=== PATIENT | female | born 1975 | race Caucasian/White ===

== ENCOUNTER 2017-06-30 15:12 | Inpatient (IN) | payer BC ==
[2017-06-30 15:14] VITALS: BMI 26.7
--- NOTE | 2017-06-30 16:05 | ED PDOC ---
HPI: Neurologic - General Time Seen by Provider: 06/30/17 15:38 Chief Complaint (Nursing): Lower Extremity Problem/Injury Chief Complaint (Provider): Lower Extremity Problem/injury Source: patient Exam Limitations: no limitations - History of Present Illness Timing/Duration: other (x4 days) Allergies/Adverse Reactions: Allergies No Known Allergies Allergy (Verified 06/30/17 15:14) Home Medications: Ambulatory Orders Meclizine [Meclizine*] 25 mg PO DAILY PRN 06/30/17 Additional Complaint(s): Vania Blair is a 41 year old female sent to the ED by her neurologist for an evaluation of a neurological problem beginning Tuesday. The patient states Tuesday night she placed a massage apparatus on her lower neck, falling asleep without removing the apparatus. She reports waking up Tuesday and favoring walking towards her right side. The patient also states experiencing double vision lasting for 10 minutes and then resolving on its own every morning since then. The patient then proceeded to see her PMD and was prescribed Meclizine, taken without relief. Subsequently, the patient saw her neurologist who sent her to the ED today. The patient denies headache, paresthesia, visual changes, blurry vision, weakness, or any other medical complaints. PMD: Harrison Garcia MD NIHSS Stroke Scale - Date/Time Evaluation Performed Date Performed: 06/30/17 Time Performed: 15:55 When Was NIHSS Performed: 24 hours post onset S/S - How Severe is the Stroke Level of Consciousness: 0=Alert LOC to Questions: 0=Both comments correct LOC to commands: 0=Obeys both correctly Best Gaze: 0=Normal Visual: 0=No visual loss Facial: 0=Normal Motor Arm - Left: 0=No drift Motor Arm - Right: 0=No drift Motor Leg - Left: 0=No drift Motor Leg - Right: 0=No drift Limb Ataxia: 1=Present Upper or Lower Sensory: 0=Normal Best Language: 0=No aphasia Dysarthia: 0=Normal articulation Extinction & Inattention (Neglect): 0=Normal, no object Score: 1 Past Medical History Reviewed: Historical Data, Nursing Documentation, Vital Signs Vital Signs: Last Vital Signs Temp 98.8 F 06/30/17 15:15 Pulse 101 H 06/30/17 15:15 Resp 16 06/30/17 15:15 BP 128/71 06/30/17 15:15 Pulse Ox 100 06/30/17 15:15 - Medical History PMH: No Chronic Diseases - Family History Family History: States: Unknown Family Hx - Home Medications Home Medications: Ambulatory Orders Medication Instructions Recorded Meclizine [Meclizine*] 25 mg PO DAILY PRN 06/30/17 - Allergies Allergies/Adverse Reactions: Allergies Allergy/AdvReac Type Severity Reaction Status Date / Time No Known Allergies Allergy Verified 06/30/17 15:14 Review of Systems ROS Statement: Except As Marked, All Systems Reviewed And Found Negative Eyes: Negative for: Vision Change, Other (no blurry vision) Neurological: Negative for: Weakness, Headache, Other (no paresthesia ) Physical Exam - Reviewed Nursing Documentation Reviewed: Yes Vital Signs Reviewed: Yes - Physical Exam Appears: Positive for: Well, Non-toxic, No Acute Distress Head Exam: Positive for: ATRAUMATIC, NORMAL INSPECTION, NORMOCEPHALIC Skin: Positive for: Normal Color, Warm, DRY Eye Exam: Positive for: EOMI, Normal appearance, PERRL ENT: Positive for: Normal ENT Inspection Neck: Positive for: Normal, Painless ROM Cardiovascular/Chest: Positive for: Regular Rate, Rhythm Respiratory: Positive for: CNT, Normal Breath Sounds Gastrointestinal/Abdominal: Positive for: Normal Exam, Bowel Sounds, Soft Back: Positive for: Normal Inspection Extremity: Positive for: Normal ROM Neurologic/Psych: Positive for: Alert, Oriented, Motor/Sensory Deficits (right finger to nose was abnormal), Gait (heel to mcallister was within normal limits ). Negative for: Facial Droop, Other (no slurred speech ) - Laboratory Results Result Diagrams: 07/01/17 05:40 07/01/17 05:40 - ECG O2 Sat by Pulse Oximetry: 100 (RA) Pulse Ox Interpretation: Normal - Physician Consult Information Physician Contacted: Carlin Thacker Outcome Of Conversation: Recommends CTA head and neck, r/o cerebellar infarction or vertebral artery dissection, ASA 81 mg PO. Medical Decision Making Medical Decision Makin:38 Impression: Neurological problem Plan: * Type and Screen * CT head W/O (Code Stroke) * ED EKG * COMP Metabolic panel * Hemoglobin A1C * Lipid panel * Troponin I * CBC (With Differential) * Partial Thromboplastin Time [COAG] * Prothrombin Time * Glucose, Blood POC * Nursing Swallow Screen * Vital Signs Q15min * [RAD] Chest portable * Urinalysis * Reevaluation 19:20 CTA results discussed with Dr. Thacker, recommends MRI brain and neck with and without contrast. MRI ordered but unable to get today since patient was administered contrast for CTA. Scribe Attestation: Documented by Asiya Mejia, acting as a scribe for Jazmin Alcaraz MD. Provider Scribe Attestation: All medical record entries made by the Scribe were at my direction and personally dictated by me. I have reviewed the chart and agree that the record accurately reflects my personal performance of the history, physical exam, medical decision making, and the department course for this patient. I have also personally directed, reviewed, and agree with the discharge instructions and disposition. Disposition - Clinical Impression Clinical Impression: Dysmetria, Ataxia, Cerebral lesion - Patient ED Disposition Is Patient to be Admitted: Yes - Disposition Disposition Time: 18:57 Condition: STABLE - Pt Status Changed To: Hospital Disposition Of: Inpatient - Admit Certification Admit to Inpatient:: After my assessment, the patient will require hospitalization for at least two midnights. This is because of the severity of symptoms shown, intensity of services needed, and/or the medical risk in this patient being treated as an outpatient. - POA Present On Arrival: None
[2017-06-30 16:36] LABS: BASO % 0.5 % (0.0-2.0); EOS % 0.2 % (0.0-4.0); HEMOGLOBIN 11.2 g/dL (12.0-16.0); LYMPH # 0.7 K/uL (1.0-4.3); LYMPH % 9.6 % (20.0-40.0); MEAN CELL VOLUME 106.3 fl (81.0-99.0); MEAN CORPUSCULAR HEMOGLOBIN 36.7 pg (27.0-31.0); MEAN CORPUSCULAR HGB CONC 34.5 g/dL (33.0-37.0); MEAN PLATELET VOLUME 7.6 fl (7.2-11.7); MONO # 0.2 K/uL (0.0-0.8); MONO % 3.4 % (0.0-10.0); NEUT # 6.1 K/uL (1.8-7.0); NEUT % 86.3 % (50.0-75.0); PLATELET COUNT 260 K/uL (130-400); RBC 3.05 Mil/uL (3.80-5.20); RED CELL DISTRIBUTION WIDTH 13.1 % (11.5-14.5); WHITE BLOOD COUNT 7.1 K/uL (4.8-10.8)
--- NOTE | 2017-06-30 16:42 | CT ---
PROCEDURE: CT HEAD WITHOUT CONTRAST. HISTORY: Unsteady gait,, diplopia COMPARISON: None available. TECHNIQUE: Axial computed tomography images were obtained through the head/brain without intravenous contrast. Radiation dose: Total exam DLP = 873.22 mGy-cm. This CT exam was performed using one or more of the following dose reduction techniques: Automated exposure control, adjustment of the mA and/or kV according to patient size, and/or use of iterative reconstruction technique. FINDINGS: HEMORRHAGE: No intracranial hemorrhage. BRAIN: No mass effect or edema. No atrophy or chronic microvascular ischemic changes. VENTRICLES: Unremarkable. No hydrocephalus. CALVARIUM: Unremarkable. PARANASAL SINUSES: Unremarkable as visualized. No significant inflammatory changes. MASTOID AIR CELLS: Unremarkable as visualized. No inflammatory changes. OTHER FINDINGS: None. IMPRESSION: No acute intracranial abnormalities. No significant findings to account for the clinical presentation. Code stroke protocol: Study completed 16:23 Radiologist notified 16:37 Results conveyed verbally at 16:39 Interpretation finalized and available for review 16:41.
[2017-06-30 16:47] LABS: SQUAMOUS EPITHIAL 22 /hpf (0-5); URINE BACTERIA RARE (<OCC); URINE BILIRUBIN NEGATIVE (NEGATIVE); URINE BLOOD SMALL (NEGATIVE); URINE CLARITY CLOUDY (Clear); URINE COLOR YELLOW (YELLOW); URINE GLUCOSE (UA) NEG (Normal); URINE LEUKOCYTE ESTERASE MOD Leu/uL (Negative); URINE NITRATE NEGATIVE (NEGATIVE); URINE PROTEIN 30 mg/dL (NEGATIVE); URINE UROBILINOGEN 0.2-1.0 mg/dL (0.2-1.0)
[2017-06-30] MEDS ORDERED: Sodium Chloride 0.9% 1,000 ML IV STA (16:52)
[2017-06-30 16:58] LABS: INR 1.3 (0.9-1.2); PARTIAL THROMBOPLASTIN TIME 29.3 Seconds (25.6-37.1); PROTHROMBIN TIME 12.9 Seconds (9.8-13.1)
[2017-06-30 17:04] LABS: ALB/GLOB RATIO 1.6 (1.0-2.1); ALBUMIN 4.6 g/dL (3.5-5.0); ALT/SGPT 41 U/L (9-52); AST/SGOT 29 U/L (14-36); BLOOD UREA NITROGEN 12 mg/dl (7-17); CALCIUM 9.9 mg/dL (8.4-10.2); GFR AFRICAN-AMERICAN > 60; GFR NON-AFRICAN AMERICAN > 60; HDL CHOLESTEROL 48 MG/DL (30-70)
[2017-06-30 17:15] LABS: LDL CHOLESTEROL 59 mg/dL (0-129)
--- NOTE | 2017-06-30 17:15 | RAD ---
HISTORY: Unsteady gait COMPARISON: None available. TECHNIQUE: Chest, one view. FINDINGS: Examination limited by habitus. LUNGS: No focal consolidation. Please note that chest x-ray has limited sensitivity for the detection of pulmonary masses. PLEURA: No significant pleural effusion identified. No definite pneumothorax . CARDIOVASCULAR: The cardiomediastinal silhouette appears within normal limits of size. OSSEOUS STRUCTURES: No acute osseous abnormality identified. VISUALIZED UPPER ABDOMEN: Unremarkable. OTHER FINDINGS: None. IMPRESSION: No focal consolidation, significant pleural effusion, or definite pneumothorax identified.
[2017-06-30] MEDS ORDERED: Sodium Chloride 0.9% 50 ML IV ONE (17:23)
[2017-06-30] MEDS ORDERED: Iodixanol 320 MG/ML 100 ML BOTTLE IV ONE (17:23)
[2017-06-30 18:27] LABS: ANISOCYTOSIS SLIGHT; BASOPHIL 1 % (0-2); LYMPHOCYTE 12 % (20-50); MONOCYTE 4 % (0-10); NEUTROPHIL 83 % (42-75); OVALOCYTES SLIGHT; PLATELET ESTIMATE NORMAL (NORMAL); POIKILOCYTOSIS SLIGHT; TOTAL CELLS COUNTED 100
[2017-06-30 18:28] LABS: LARGE PLATELETS PRESENT
[2017-06-30] MEDS: Dextrose 5%/0.45% NS 1,000 ML IV SCH (23:59)
[2017-07-01 06:19] LABS: HEMOGLOBIN 9.7 g/dL (12.0-16.0); MEAN CELL VOLUME 106.1 fl (81.0-99.0); MEAN CORPUSCULAR HEMOGLOBIN 36.9 pg (27.0-31.0); MEAN CORPUSCULAR HGB CONC 34.8 g/dL (33.0-37.0); RBC 2.63 Mil/uL (3.80-5.20); RED CELL DISTRIBUTION WIDTH 13.1 % (11.5-14.5); WHITE BLOOD COUNT 4.5 K/uL (4.8-10.8)
[2017-07-01 06:28] LABS: BLOOD UREA NITROGEN 9 mg/dl (7-17); CALCIUM 9.3 mg/dL (8.4-10.2); GFR AFRICAN-AMERICAN > 60; GFR NON-AFRICAN AMERICAN > 60
--- NOTE | 2017-07-01 07:25 | CARD ---
APPROVED REPORT EKG Measurement Heart [id number] <Conclusion> Normal sinus rhythm with sinus arrhythmia Possible Left atrial enlargement Borderline ECG
--- NOTE | 2017-07-01 08:25 | CT ---
PROCEDURE: CT Angiography of the neck and Brain. HISTORY: Ataxia COMPARISON: Comparison is made to the previous same-day CT of the head without contrast TECHNIQUE: CT angiography of the neck and intracranial arteries was performed. Coronal and sagittal maximum intensity projection reformated images were generated. 80 mL of Visipaque 320 was injected intravenously. This CT exam was performed using one or more of the following dose reduction techniques: Automated exposure control, adjustment of the mA and/or kV according to patient size, and/or use of iterative reconstruction technique. Total exam D LP: 2044.8. FINDINGS: INTERNAL CEREBRAL ARTERIES: Unremarkable. The skull base, petrous, cavernous and supraclinoid segments are bilaterally widely patient. ANTERIOR CEREBRAL ARTERIES: Unremarkable. A1 and A2 segments are widely patent. Smaller distal branches unremarkable, as visualized. MIDDLE CEREBRAL ARTERIES: Unremarkable. M1 and M2 segments are widely patent. Perisylvian branches grossly symmetric. POSTERIOR CIRCULATION: Basilar Artery: Unremarkable. Distal Vertebral Arteries: Unremarkable. Posterior Cerebral Arteries: Unremarkable. Posterior Inferior Cerebellar Arteries: Unremarkable. ANEURYSM/ VASCULAR MALFORMATIONS: None. OTHER FINDINGS: Again seen are foci of low attenuation at the bifrontal lobes larger on the right and in the right parietal lobe mainly in the white matter. The possibility of MS or other etiology including sequela of infection or inflammatory process should be considered. The differential diagnosis also includes but less likely metastasis. Slightly enlarged thyroid gland contains multiple small low-attenuation nodules. Slightly prominent lower neck lymph nodes. Questionable wall small lytic bony lesion in the calvarium and cervical spine. IMPRESSION: No evidence of significant stenosis or occlusion in the cervical and intracranial arteries. Re- demonstration of foci of low attenuation in the brain mainly at the bifrontal lobes and right parietal lobe. The differential diagnosis includes but not limited to MS, sequela of infection or inflammatory process or less likely metastasis. Further assessment by MRI with contrast is recommended. Questionable small lytic bony lesions in the calvarium and cervical spine. Preliminary report was submitted by [facility].
[2017-07-01] MEDS ORDERED: Gadodiamide 287 MG/ML VIAL (15ML) IV ONE (08:53)
[2017-07-01 09:41] LABS: IRON 147 ug/dL (37-170)
[2017-07-01 09:51] LABS: % IRON SATURATION 60 % (20-55); TOTAL IRON BINDING CAPACITY 245 ug/dL (250-450)
--- NOTE | 2017-07-01 11:23 | MRI ---
PROCEDURE: MRI BRAIN WITH AND WITHOUT CONTRAST HISTORY: Cerebral/calvarial/vertebral/thyroid lesions COMPARISON: Comparison is made to the previous CT of the head without contrast dated 06/30/2017 TECHNIQUE: Multiplanar, multisequence MR images of the brain were obtained with and without intravenous contrast enhancement. FINDINGS: HEMORRHAGE: None DWI: No evidence of an acute or early subacute infarction. BRAIN PARENCHYMA: There are multiple subcortical and periventricular white matter hyperintense T2 and FLAIR signal lesions. The distribution and the shape of these lesions are highly suspicious for MS. there are also infratentorial hyperintense FLAIR signal lesions seen mainly at the right cerebral peduncle. Some of these lesions including the right cerebral peduncle and bilateral supratentorial lesions demonstrate postcontrast enhancement suggestive of active MS lesions. The sagittal FLAIR images show perpendicular orientation of these lesions on the corpus callosum (Hickey' fingers) which is somewhat specific for MS lesions. There is relatively large hyperintense lesion at the right frontal white matter. There is [id number]-[id number] atrophy noted. ENHANCEMENT: Scattered enhancing lesion as described above. VENTRICLES: Unremarkable. No hydrocephalus. CRANIUM: Unremarkable. ORBITS: Grossly unremarkable. PARANASAL SINUSES/MASTOIDS: Clear VASCULAR SYSTEM: Skull base flow voids intact. OTHER FINDINGS: None . IMPRESSION: Multiple supratentorial and infratentorial white matter lesions some of which demonstrate postcontrast enhancement. The location shape and pattern of these lesions suggestive of MS. Given the enhancing lesions the possibility of active MS should be considered. The differential diagnosis includes less likely sequela of post infection or inflammatory process. The possibility of metastasis is less likely. Correlation with CSF analysis is suggested. [id number] volume loss.
--- NOTE | 2017-07-01 11:38 | MRI ---
PROCEDURE: MR CERVICAL SPINE WITH AND WITHOUT CONTRAST HISTORY: lytic lesion, brain lesions suspicious for MS. COMPARISON: None available. TECHNIQUE: Multiecho multiplanar sequences were performed through the cervical spine with and without the use of intravenous contrast. FINDINGS: Normal lordotic curvature. Craniocervical junction unremarkable. Vertebral body heights preserved. No marrow signal abnormality. There is elongated 9.9 x 4 millimeter hyperintense T2 lesion at the cervical cord at the level of C2-C3. There are also suspicious for small cord lesions. No evidence of postcontrast enhancement at these lesions. No paraspinal abnormality. No abnormal enhancement C2-3: No disc herniation, spinal canal stenosis or neural foraminal narrowing. C3-4: No disc herniation, spinal canal stenosis or neural foraminal narrowing. C4-5: No disc herniation, spinal canal stenosis or neural foraminal narrowing. C5-C6: No disc herniation, spinal canal stenosis or neural foraminal narrowing. C6-C7: No disc herniation, spinal canal stenosis or neuroforaminal narrowing. C7-T1: No disc herniation, spinal canal stenosis or neural foraminal narrowing. OTHER FINDINGS: Mild degenerative disc changes/ disc desiccation noted at the cervical spine. IMPRESSION: Cervical cord lesion seen at C2-C3 level without significant enhancement. Given the patient's history of multiple brain lesions, findings highly suggestive of MS. Questionable small less than 5 millimeter lesions seen at C4 and C5 level. No evidence of abnormal enhancement in the cervical cord. Mild disc desiccation changes. Slightly enlarged thyroid demonstrates small thyroid nodules. Interval follow-up reassessment by ultrasound may be obtained.
[2017-07-01] MEDS ORDERED: Lidocaine 1% Inj (20ml) ONE (13:01)
[2017-07-01] MEDS ORDERED: methylPREDNISolone 1 GM in Sodium Chloride 0.9% 250 ML IV SCH (13:45)
--- NOTE | 2017-07-01 13:50 | CP.PCM.CON ---
History of Present Illness - History of Present Illness History of Present Illness: Ms. Blair is a 41-year-old woman with a history since 2008 of having symptoms of anxiety, strange weakness and sensations of the right leg that improve, who has been having double vision, gait difficulty and coordination problems ( mostly on the right side) for the past two weeks. She initially presented after she woke up one morning with the neck massager that was on all night and she thought that she may have had these symptoms as a result. A CTA of the head /neck was done and hypodense lesions were noted in the brain and cervical cord. MRI of the brain and cervical cord were then done that confirmed the presence of innumerable lesions in many different locations, brainstem, cervical cord, cerebellum, and both hemispheres, or different ages, some were contrast enhancing and others were only present on T2 sequence. I was called and performed the lumbar puncture to evaluate the CSF for features of multiple sclerosis. Review of Systems - Review of Systems All systems: reviewed and no additional remarkable complaints except Past Patient History - Past Medical History & Family History Past Medical History?: Yes - Past Social History Smoking Status: Never Smoked - CARDIAC Hx Cardiac Disorders: No - PULMONARY Hx Respiratory Disorders: Yes Hx Pneumonia: Yes (as a child) - NEUROLOGICAL Hx Neurological Disorder: No - HEENT Hx HEENT Problems: No Other/Comment: Mononucleosis - RENAL Hx Chronic Kidney Disease: No - ENDOCRINE/METABOLIC Hx Endocrine Disorders: No - HEMATOLOGICAL/ONCOLOGICAL Hx Blood Disorders: No - INTEGUMENTARY Hx Dermatological Problems: No - MUSCULOSKELETAL/RHEUMATOLOGICAL Hx Musculoskeletal Disorders: No Hx Falls: No - GASTROINTESTINAL Hx Gastrointestinal Disorders: No - GENITOURINARY/GYNECOLOGICAL Hx Genitourinary Disorders: No - PSYCHIATRIC Hx Psychophysiologic Disorder: No Hx Substance Use: No - SURGICAL HISTORY Hx Surgeries: No - ANESTHESIA Hx Anesthesia: No Meds Allergies/Adverse Reactions: Allergies Allergy/AdvReac Type Severity Reaction Status Date / Time No Known Allergies Allergy Verified 06/30/17 15:14 - Medications Medications: Current Medications Dextrose/Sodium Chloride (Dextrose 5%/0.45% Ns 1000 Ml) 1,000 mls @ 80 mls/hr IV .[id number] [place] Stop: 07/01/17 23:27 Last Admin: 06/30/17 23:59 Dose: 80 mls/hr Methylprednisolone 1 gm/ (Sodium Chloride) 250 mls @ 500 mls/hr IV DAILY [place] Stop: 07/04/17 13:46 Physical Exam - Constitutional Appears: Well - Head Exam Head Exam: ATRAUMATIC, NORMAL INSPECTION, NORMOCEPHALIC - Eye Exam Eye Exam: EOMI, Normal appearance, PERRL - ENT Exam ENT Exam: Mucous Membranes Moist, Normal Exam - Neck Exam Neck exam: Positive for: Normal Inspection - Respiratory Exam Respiratory Exam: Clear to Auscultation Bilateral, NORMAL BREATHING PATTERN - Cardiovascular Exam Cardiovascular Exam: REGULAR RHYTHM, +S1, +S2 - GI/Abdominal Exam GI & Abdominal Exam: Normal Bowel Sounds, Soft. absent: Tenderness - Rectal Exam Rectal Exam: NORMAL INSPECTION - Extremities Exam Extremities exam: Positive for: normal inspection - Back Exam Back exam: NORMAL INSPECTION - Neurological Exam Neurological exam: Abnormal Gait, CN II-XII Intact, Oriented x3 - Expanded Neurological Exam Expanded Patient oriented to: person, place, time Cranial nerves: EOM's Intact: Normal, Facial Palsey w/o Forehead Movement: Normal, Gag Reflex: Normal Ataxia: Yes (mostly on the right side on finger to nose and heal to mcallister testing ) Cerebellar Function: Finger to Nose: Abnormal Right, Heel to Mcallister: Abnormal Right Upper motor neuron: Babinski Sign: Abnormal Right Sensory exam: Lower Extremity Light Touch: Normal, Lower Extremity Pin Prick: Normal, Upper Extremity Light Touch: Normal, Upper Extremity Pin Prick: Normal Neuro motor strength exam: Left Upper Extremity: 5, Right Upper Extremity: 5, Left Lower Extremity: 5, Right Lower Extremity: 5 DTR: Achilles Tendon Left: 3+, Achilles Tendon Right: 3+, Bicep Left: 3+, Bicep Right: 3+, Brachioradialis Left: 3+, Brachioradialis Right: 3+, Patellar Left: 3 +, Patellar Right: 3+, Tricep Left: 3+, Tricep Right: 3+ - Psychiatric Exam Psychiatric exam: Normal Affect, Normal Mood - Skin Skin Exam: Dry, Intact, Normal Color, Warm Results - Vital Signs Recent Vital Signs: Last Vital Signs Temp 98.1 F 07/01/17 12:29 Pulse 85 07/01/17 12:29 Resp 18 07/01/17 12:29 BP 111/74 07/01/17 12:29 Pulse Ox 98 07/01/17 12:29 - Labs Result Diagrams: 07/01/17 05:40 07/01/17 05:40 Labs: Laboratory Results - last 24 hr 07/01/17 07/01/17 07/01/17 05:40 05:40 06:00 WBC 4.5 L RBC 2.63 L Hgb 9.7 L Hct 27.9 L MCV 106.1 H MCH 36.9 H MCHC 34.8 RDW 13.1 Plt Count 215 Sodium 140 Potassium 3.7 Chloride 107 Carbon Dioxide 25 Anion Gap 12 BUN 9 Creatinine 0.6 L Est GFR ( Amer) > 60 Est GFR (Non-Af Amer) > 60 Random Glucose 123 H Calcium 9.3 Iron 147 TIBC 245 L % Saturation 60 H Ferritin 07/01/17 06:00 WBC RBC Hgb Hct MCV MCH MCHC RDW Plt Count Sodium Potassium Chloride Carbon Dioxide Anion Gap BUN Creatinine Est GFR ( Amer) Est GFR (Non-Af Amer) Random Glucose Calcium Iron TIBC % Saturation Ferritin 185.0 Assessment & Plan (1) Multiple sclerosis Assessment and Plan: Likely an exacerbation of long-standing disease based on the MRI. Will check CSF for myelin basic protein, IgG index and oligoclonal bands. Will also check for infectious etiology and evaluate for the usual cell count and protein. Will start Solumedrol 1g daily for 3 days and recommend outpatient neurological follow-up for treatment of MS and long-term evaluation. Thank you. Status: Acute Priority: High
[2017-07-01 14:29] LABS: FLUID TYPE SPINAL FLUID
[2017-07-01 14:31] LABS: CSF APPEARANCE CLEAR/COLORLESS (CLEAR)
[2017-07-01 14:33] LABS: CSF VOLUME 2 mL (0-1)
[2017-07-01] MEDS: Dextrose 5%/0.45% NS 1,000 ML IV SCH (17:08)
[2017-07-01] MEDS: methylPREDNISolone 1 GM in Sodium Chloride 0.9% 250 ML IV SCH (19:57)
--- NOTE | 2017-07-02 00:03 | HP ---
HISTORY OF PRESENT ILLNESS: The patient is a 41-year-old female who was referred to the emergency room by her neurologist for evaluation of neurologic problems that started 4 to 5 days prior to the presentation. She indicates that she had placed a massage apparatus on her neck and fell asleep with it. On Tuesday before symptoms started, she indicates that she has had double vision for 10 to 15 minutes in the morning on waking up and also feels likes her gait has been unsteady. She denies headaches. No chest pain. No weakness of arms. PAST MEDICAL HISTORY: Unremarkable. FAMILY HISTORY: Unremarkable. SOCIAL HISTORY: She drinks a glass of wine at night with meals. Does not smoke. 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 PHYSICAL EXAMINATION: GENERAL: The patient is alert and oriented. VITAL SIGNS: Blood pressure 128/70, pulse 100, respiratory rate 18. She is afebrile. O2 sat 100% on room air. SKIN: Shows fair turgor. HEENT: Pupils equal, reactive to light and accommodation. Mouth shows fair hygiene. NECK: JVP is flat. LUNGS: Clear. BREASTS: Normal. HEART: Regular. No murmurs, rubs or gallop. ABDOMEN: Soft and nontender. No organomegaly. EXTREMITIES: Shows no edema. No cyanosis. CENTRAL NERVOUS SYSTEM: Grossly unremarkable except for unsteadiness of gait. DATA: CT scan of the head shows no acute pathology. Head and neck CTA done, official report is pending. Chest x-ray shows no acute cardiopulmonary pathology. EKG normal sinus rhythm with sinus arrhythmia, possible left atrial enlargement. LABORATORY DATA: WBC 4.5, hemoglobin 9.7, platelet count of 215,000. Sodium 140, potassium 3.7, BUN of 9, creatinine 0.6. Serum glucose 123. IMPRESSION: A young female with neurologic symptoms and visual disturbances. One has to rule out JUNIOR SYSTEMS ENGINEER pathology including symptoms like that related to multiple sclerosis. This could also be due to the patient's use of neck massager with some form of nerve entrapment. PLAN: The plan is to obtain neurology evaluation, obtain an MRI of the brain to rule out for a intracranial pathology with neurology advise prior to further plans. The patient also has anemia, which appears to be due to iron deficiency, will probably need anemia workup, that could be done as an outpatient if clinically stable. Case discussed at length with the patient. Amilcar Sandoval MD
[2017-07-02] MEDS: methylPREDNISolone 1 GM in Sodium Chloride 0.9% 250 ML IV SCH (08:52)
--- NOTE | 2017-07-02 11:44 | CP.PCM.PN ---
Subjective - Date & Time of Evaluation Date of Evaluation: 07/02/17 Time of Evaluation: 11:45 - Subjective Subjective: GAIT IMPROVING DIPLOPIA IMPROVING Objective - Vital Signs/Intake and Output Vital Signs (last 24 hours): Temp Pulse Resp BP Pulse Ox 98 F 75 20 104/99 H 100 07/02/17 09:00 07/02/17 09:00 07/02/17 09:00 07/02/17 09:00 07/02/17 10:26 Intake and Output: 07/02/17 07/02/17 06:59 18:59 Intake Total 600 Balance 600 - Medications Medications: Current Medications Methylprednisolone 1 gm/ (Sodium Chloride) 250 mls @ 62.5 mls/hr IV DAILY [place] Stop: 07/04/17 17:46 Last Admin: 07/02/17 08:52 Dose: 62.5 mls/hr - Labs Labs: 07/01/17 05:40 07/01/17 05:40 PT 12.9 Seconds (9.8-13.1) 06/30/17 16:00 INR 1.3 (0.9-1.2) H 06/30/17 16:00 APTT 29.3 Seconds (25.6-37.1) 06/30/17 16:00 - Constitutional Appears: No Acute Distress - Head Exam Head Exam: ATRAUMATIC, NORMAL INSPECTION, NORMOCEPHALIC - Eye Exam Eye Exam: EOMI, Normal appearance, PERRL Pupil Exam: NORMAL ACCOMODATION, PERRL - ENT Exam ENT Exam: Mucous Membranes Moist, Normal Exam - Neck Exam Neck Exam: Full ROM, Normal Inspection. absent: Lymphadenopathy - Respiratory Exam Respiratory Exam: Clear to Ausculation Bilateral, NORMAL BREATHING PATTERN - Cardiovascular Exam Cardiovascular Exam: REGULAR RHYTHM, +S1, +S2. absent: Murmur - GI/Abdominal Exam GI & Abdominal Exam: Soft, Normal Bowel Sounds. absent: Tenderness - Rectal Exam Rectal Exam: NORMAL INSPECTION - Extremities Exam Extremities Exam: Full ROM, Normal Capillary Refill, Normal Inspection. absent : Joint Swelling, Pedal Edema - Back Exam Back Exam: NORMAL INSPECTION - Neurological Exam Neurological Exam: Alert, Awake, CN II-XII Intact, Normal Gait, Oriented x3 - Psychiatric Exam Psychiatric exam: Normal Affect, Normal Mood - Skin Skin Exam: Dry, Intact, Normal Color, Warm Additional comments: SPINAL FLUID RESULTS NOTED Assessment and Plan - Assessment and Plan (Free Text) Assessment: MULTIPLE SCLEROSIS Plan: CONTINUE IV STEROIDS PHYSICAL RX
[2017-07-02] MEDS: Pantoprazole 40 mg EC Tab PO SCH (17:16)
--- NOTE | 2017-07-02 17:39 | CP.PCM.PN ---
Subjective - Date & Time of Evaluation Date of Evaluation: 07/02/17 Time of Evaluation: 17:32 - Subjective Subjective: Ms. Blair was seen and examined today at bedside. She states that her double vision improved, her coordination has improved and she feels that she is ambulating better today. She has had two doses of Solumedrol 1 gram so far and is scheduled to have another dose tomorrow. There were no acute events overnight. Objective - Vital Signs/Intake and Output Vital Signs (last 24 hours): Temp Pulse Resp BP Pulse Ox 98.3 F 92 H 16 100/63 96 07/02/17 16:03 07/02/17 16:03 07/02/17 16:03 07/02/17 16:03 07/02/17 16:03 Intake and Output: 07/02/17 07/02/17 06:59 18:59 Intake Total 600 Balance 600 - Medications Medications: Current Medications Methylprednisolone 1 gm/ (Sodium Chloride) 250 mls @ 62.5 mls/hr IV DAILY [place] Stop: 07/04/17 17:46 Last Admin: 07/02/17 08:52 Dose: 62.5 mls/hr Pantoprazole Sodium (Protonix Ec Tab) 40 mg PO DAILY D[place] Last Admin: 07/02/17 17:16 Dose: 40 mg - Labs Labs: 07/01/17 05:40 07/01/17 05:40 PT 12.9 Seconds (9.8-13.1) 06/30/17 16:00 INR 1.3 (0.9-1.2) H 06/30/17 16:00 APTT 29.3 Seconds (25.6-37.1) 06/30/17 16:00 - Neurological Exam Neurological Exam: Abnormal Gait, CN II-XII Intact, Oriented x3 Neuro motor strength exam: Left Upper Extremity: 5, Right Upper Extremity: 4, Left Lower Extremity: 5, Right Lower Extremity: 4 Additional comments: Brisk reflexes throughout. Ataxia on finger to nose on the right improved compared to yesterday. Assessment and Plan (1) Multiple sclerosis Assessment & Plan: Continue 3 day course of Solumedrol and will re-evaluate for a possible 4th dose. She will likely be discharged on Tuesday to follow up with outpatient neurology for the remainder of her test results and to consider starting MS medication. Status: Acute
[2017-07-03] MEDS: Pantoprazole 40 mg EC Tab PO SCH (09:35)
[2017-07-03] MEDS: methylPREDNISolone 1 GM in Sodium Chloride 0.9% 250 ML IV SCH (09:36)
--- NOTE | 2017-07-03 10:32 | CP.PCM.PN ---
Subjective - Date & Time of Evaluation Date of Evaluation: 07/03/17 Time of Evaluation: 10:33 - Subjective Subjective: FEELING BETTER DOUBLE VISION IMPROVED GAIT IMPROVED Objective - Vital Signs/Intake and Output Vital Signs (last 24 hours): Temp Pulse Resp BP Pulse Ox 97.9 F 74 18 103/63 98 07/03/17 09:00 07/03/17 09:00 07/03/17 09:00 07/03/17 09:00 07/03/17 09:00 - Medications Medications: Current Medications Methylprednisolone 1 gm/ (Sodium Chloride) 250 mls @ 62.5 mls/hr IV DAILY [place] Stop: 07/04/17 17:46 Last Admin: 07/03/17 09:36 Dose: 62.5 mls/hr Pantoprazole Sodium (Protonix Ec Tab) 40 mg PO DAILY [place] Last Admin: 07/03/17 09:35 Dose: 40 mg - Labs Labs: 07/01/17 05:40 07/01/17 05:40 PT 12.9 Seconds (9.8-13.1) 06/30/17 16:00 INR 1.3 (0.9-1.2) H 06/30/17 16:00 APTT 29.3 Seconds (25.6-37.1) 06/30/17 16:00 - Constitutional Appears: No Acute Distress - Head Exam Head Exam: ATRAUMATIC, NORMAL INSPECTION, NORMOCEPHALIC - Eye Exam Eye Exam: EOMI, Normal appearance, PERRL Pupil Exam: NORMAL ACCOMODATION, PERRL - ENT Exam ENT Exam: Mucous Membranes Moist, Normal Exam - Neck Exam Neck Exam: Full ROM, Normal Inspection. absent: Lymphadenopathy - Respiratory Exam Respiratory Exam: Clear to Ausculation Bilateral, NORMAL BREATHING PATTERN - Cardiovascular Exam Cardiovascular Exam: REGULAR RHYTHM, +S1, +S2. absent: Murmur - GI/Abdominal Exam GI & Abdominal Exam: Soft, Normal Bowel Sounds. absent: Tenderness - Rectal Exam Rectal Exam: NORMAL INSPECTION - Extremities Exam Extremities Exam: Full ROM, Normal Capillary Refill, Normal Inspection. absent : Joint Swelling, Pedal Edema - Back Exam Back Exam: NORMAL INSPECTION - Neurological Exam Neurological Exam: Alert, Awake, CN II-XII Intact, Oriented x3 Additional comments: GAIT IMPROVED - Psychiatric Exam Psychiatric exam: Normal Affect, Normal Mood - Skin Skin Exam: Dry, Intact, Normal Color, Warm Assessment and Plan - Assessment and Plan (Free Text) Assessment: MULTIPLE SCLEROSIS Plan: CONTINUE IV STEROIDS D/C HOME IN AM IF STABLE
--- NOTE | 2017-07-03 17:09 | CP.PCM.PN ---
Subjective - Date & Time of Evaluation Date of Evaluation: 07/03/17 Time of Evaluation: 17:07 - Subjective Subjective: Ms. Blair was seen and examined today at bedside. She states that she is feeling better and her coordination and balance is improving with the steroids. No acute events overnight. Objective - Vital Signs/Intake and Output Vital Signs (last 24 hours): Temp Pulse Resp BP Pulse Ox 98.2 F 87 18 99/64 L 97 07/03/17 16:13 07/03/17 16:13 07/03/17 16:13 07/03/17 16:13 07/03/17 16:13 - Medications Medications: Current Medications Methylprednisolone 1 gm/ (Sodium Chloride) 250 mls @ 62.5 mls/hr IV DAILY [place] Stop: 07/04/17 17:46 Last Admin: 07/03/17 09:36 Dose: 62.5 mls/hr Pantoprazole Sodium (Protonix Ec Tab) 40 mg PO DAILY [place] Last Admin: 07/03/17 09:35 Dose: 40 mg - Labs Labs: 07/01/17 05:40 07/01/17 05:40 PT 12.9 Seconds (9.8-13.1) 06/30/17 16:00 INR 1.3 (0.9-1.2) H 06/30/17 16:00 APTT 29.3 Seconds (25.6-37.1) 06/30/17 16:00 - Neurological Exam Additional comments: Improved right side ataxia, continues to have gait instability, no diplopia today. Assessment and Plan (1) Multiple sclerosis Assessment & Plan: Would like to give one more dose of Solumedrol 1000 mg IV tomorrow morning at 8 AM and may D/C home after infusion if she tolerates it well. PT/OT eval for possible cane or walker is recommended. Status: Acute
[2017-07-04] MEDS ORDERED: methylPREDNISolone 1 GM in Sodium Chloride 0.9% 250 ML IV ONE (08:00)
[2017-07-04 08:08] VITALS: BP 108/63; PULSE 52; RESP 20; TEMP 97; O2SAT 96
[2017-07-04] MEDS: Pantoprazole 40 mg EC Tab PO SCH (08:19)
--- NOTE | 2017-07-04 08:46 | CP.PCM.DIS ---
Provider - Provider Date of Admission: 06/30/17 18:57 Attending physician: Amilcar Sandoval MD Time Spent in preparation of Discharge (in minutes): 35 Diagnosis - Discharge Diagnosis (1) Ataxia Status: Acute (2) Cerebral lesion Status: Acute (3) Dysmetria Status: Acute (4) Multiple sclerosis Status: Acute Priority: High Hospital Course - Lab Results Lab Results: Micro Results 07/01/17 14:28 Cerebral Spinal Fluid Gram Stain - Final 07/01/17 14:28 Cerebral Spinal Fluid CSF Culture - Preliminary NO GROWTH AFTER 2 DAYS Most Recent Lab Values WBC 4.5 K/uL (4.8-10.8) L 07/01/17 05:40 RBC 2.63 Mil/uL (3.80-5.20) L 07/01/17 05:40 Hgb 9.7 g/dL (12.0-16.0) L 07/01/17 05:40 Hct 27.9 % (34.0-47.0) L 07/01/17 05:40 MCV 106.1 fl (81.0-99.0) H 07/01/17 05:40 MCH 36.9 pg (27.0-31.0) H 07/01/17 05:40 MCHC 34.8 g/dL (33.0-37.0) 07/01/17 05:40 RDW 13.1 % (11.5-14.5) 07/01/17 05:40 Plt Count 215 K/uL (130-400) 07/01/17 05:40 MPV 7.6 fl (7.2-11.7) 06/30/17 16:00 Neut % (Auto) 86.3 % (50.0-75.0) H 06/30/17 16:00 Lymph % (Auto) 9.6 % (20.0-40.0) L 06/30/17 16:00 [place]ley % (Auto) 3.4 % (0.0-10.0) 06/30/17 16:00 Eos % (Auto) 0.2 % (0.0-4.0) 06/30/17 16:00 Baso % (Auto) 0.5 % (0.0-2.0) 06/30/17 16:00 Neut # 6.1 K/uL (1.8-7.0) 06/30/17 16:00 Lymph # 0.7 K/uL (1.0-4.3) L 06/30/17 16:00 Hartley # 0.2 K/uL (0.0-0.8) 06/30/17 16:00 Eos # 0.0 K/uL (0.0-0.7) 06/30/17 16:00 Baso # 0.0 K/uL (0.0-0.2) 06/30/17 16:00 Neutrophils % (Manual) 83 % (42-75) H 06/30/17 16:00 Lymphocytes % (Manual) 12 % (20-50) L 06/30/17 16:00 Monocytes % (Manual) 4 % (0-10) 06/30/17 16:00 Basophils % (Manual) 1 % (0-2) 06/30/17 16:00 Platelet Estimate Normal (NORMAL) 06/30/17 16:00 Large Platelets Present 06/30/17 16:00 Poikilocytosis (manual Slight 06/30/17 16:00 Anisocytosis (manual) Slight 06/30/17 16:00 Macrocytosis (manual) Slight 06/30/17 16:00 Ovalocytes Slight 06/30/17 16:00 PT 12.9 Seconds (9.8-13.1) 06/30/17 16:00 INR 1.3 (0.9-1.2) H 06/30/17 16:00 APTT 29.3 Seconds (25.6-37.1) 06/30/17 16:00 Sodium 140 mmol/l (132-148) 07/01/17 05:40 Potassium 3.7 MMOL/L (3.6-5.0) 07/01/17 05:40 Chloride 107 mmol/L (98-107) 07/01/17 05:40 Carbon Dioxide 25 mmol/L (22-30) 07/01/17 05:40 Anion Gap 12 (10-20) 07/01/17 05:40 BUN 9 mg/dl (7-17) 07/01/17 05:40 Creatinine 0.6 mg/dL (0.7-1.2) L 07/01/17 05:40 Est GFR ( Amer) > 60 07/01/17 05:40 Est GFR (Non-Af Amer) > 60 07/01/17 05:40 POC Glucose (mg/dL) 124 mg/dL (65-110) H 06/30/17 16:18 Random Glucose 123 mg/dL (65-105) H 07/01/17 05:40 Hemoglobin A1c 4.6 % (4.2-6.5) 06/30/17 16:04 Calcium 9.3 mg/dL (8.4-10.2) 07/01/17 05:40 Iron 147 ug/dL (37-170) 07/01/17 06:00 TIBC 245 ug/dL (250-450) L 07/01/17 06:00 % Saturation 60 % (20-55) H 07/01/17 06:00 Ferritin 185.0 ng/mL 07/01/17 06:00 Total Bilirubin 0.9 mg/dl (0.2-1.3) 06/30/17 16:00 AST 29 U/L (14-36) 06/30/17 16:00 ALT 41 U/L (9-52) 06/30/17 16:00 Alkaline Phosphatase 61 U/L (38-126) 06/30/17 16:00 Troponin I < 0.0120 ng/mL (0.00-0.120) 06/30/17 16:00 Total Protein 7.5 G/DL (6.3-8.2) 06/30/17 16:00 Albumin 4.6 g/dL (3.5-5.0) 06/30/17 16:00 Globulin 2.8 gm/dL (2.2-3.9) 06/30/17 16:00 Albumin/Globulin Ratio 1.6 (1.0-2.1) 06/30/17 16:00 Triglycerides 87 mg/DL (0-149) 06/30/17 16:00 Cholesterol 125 mg/dL (0-199) 06/30/17 16:00 LDL Cholesterol Direct 59 mg/dL (0-129) 06/30/17 16:00 HDL Cholesterol 48 MG/DL (30-70) 06/30/17 16:00 Urine Color Yellow (YELLOW) 06/30/17 16:20 Urine Clarity Cloudy (Clear) 06/30/17 16:20 Urine pH 6.0 (5.0-8.0) 06/30/17 16:20 Ur Specific [place] 1.025 (1.003-1.030) 06/30/17 16:20 Urine Protein 30 mg/dL (NEGATIVE) 06/30/17 16:20 Urine Glucose (UA) Neg mg/dL (Normal) 06/30/17 16:20 Urine Ketones Trace mg/dL (NEGATIVE) 06/30/17 16:20 Urine Blood Small (NEGATIVE) 06/30/17 16:20 Urine Nitrate Negative (NEGATIVE) 06/30/17 16:20 Urine Bilirubin Negative (NEGATIVE) 06/30/17 16:20 Urine Urobilinogen 0.2-1.0 mg/dL (0.2-1.0) 06/30/17 16:20 Ur Leukocyte Esterase Mod Reinal[place]/uL (Negative) 06/30/17 16:20 Urine RBC (Auto) 6 /hpf (0-3) H 06/30/17 16:20 Urine Microscopic WBC 15 /hpf (0-5) H 06/30/17 16:20 Ur Squamous Epith Cells 22 /hpf (0-5) H 06/30/17 16:20 Urine Bacteria Rare (<OCC) 06/30/17 16:20 Fluid Type Spinal fluid 07/01/17 14:28 CSF Volume 2 mL (0-1) H 07/01/17 14:28 CSF Appearance Clear/colorless (CLEAR) 07/01/17 14:28 CSF WBC 4.0 /mm3 (0.0-5.0) 07/01/17 14:28 CSF RBC 0.0 /mm3 (0.0-0.0) 07/01/17 14:28 CSF Total Cell Counted TEST NOT PERFORMED 07/01/17 14:28 CSF Neutrophils Web Marketing Assistant 07/01/17 14:28 CSF Monos/Macrophages TEST NOT PERFORMED 07/01/17 14:28 CSF Comment N/a 07/01/17 14:28 CSF Glucose 78 mg/dL (40-70) H 07/01/17 14:28 CSF Total Protein 44.0 mg/dL (12-60) 07/01/17 14:28 IgG 840.1 mg/dL (700.0-1600.0) 07/01/17 14:28 Blood Type A POSITIVE 06/30/17 16:20 Antibody Screen Negative 06/30/17 16:20 BBK History Checked No verified bt 06/30/17 16:20 - Hospital Course Hospital Course: DIPLOPIA AND ATAXIA IMPROVED Discharge Exam - Head Exam Head Exam: ATRAUMATIC, NORMAL INSPECTION, NORMOCEPHALIC - Eye Exam Eye Exam: EOMI, Normal appearance, PERRL Pupil Exam: NORMAL ACCOMODATION, PERRL - GI/Abdominal Exam GI & Abdominal Exam: Normal Bowel Sounds - Rectal Exam Rectal Exam: NORMAL INSPECTION - Neurological Exam Neurological exam: Abnormal Gait, Alert, CN II-XII Intact, Oriented x3, Reflexes Normal - Psychiatric Exam Psychiatric exam: Normal Affect, Normal Mood - Skin Skin Exam: Dry, Intact, Normal Color, Warm Discharge Plan - Discharge Medications Prescriptions: Prednisone 10 mg PO DAILY #7 tab.[id number].pk Pantoprazole [Protonix EC Tab] 40 mg PO DAILY #10 ect - Follow Up Plan Condition: STABLE Disposition: HOME/ ROUTINE Patient education suggested?: Yes Additional Instructions: WILL DISCHARGE TODAY FOLLOW UP WITH NEUROLOGIST--DR MARTIN OUT PT PHYSICAL THERAPY RECOMMENDED--PT TO CHECK WITH INS CO RE-REFERRAL
--- NOTE | 2017-07-04 15:48 | PCM.PROC ---
Procedures Attestation:: I certify that I have explained the specified Operation(s) or Procedure(s), risks, benefits and reasonable alternatives to the Patient and/or other person responsible. The opportunity was given to ask questions and all questions answered - Lumbar Puncture Consent Obtained: Written Consent Time Out Performed: Yes Patient Position: Upright Skin Prep: Povidone-Iodine 1% Local Anesthetic Used: Lidocaine 1% Spinal Needle Gauge: 22G Interspace Used: L4-L5 Fluid Initially Obtained: Clear Complications: None
[2017-07-05 01:59] LABS: HSV 1 DNA Not Detected (Not Detected); HSV 2 DNA Not Detected (Not Detected); SPECIMEN SOURCE CSF
[2017-07-05 22:08] LABS: IGG INDEX CSF 1.73 (<0.66); SYNTHESIS RATE IGG CSF 24.2 mg/24 h (-9.9-3.3)
[2017-07-06 17:15] LABS: CSF ALPHA-1-GLOBULIN 5.4 % (1.8-6.5); CSF ALPHA-2-GLOBULIN 5.2 % (4.6-10.8); CSF GAMMA GLOBULIN 31.2 % (4.8-17.6)
== END 2017-07-04 11:55 | disposition home or self-care (01) | DRG 72 ==
LOC: H.ER 15:12 → H.ERHOLD 18:57 → H.TEL 22:30
PROVIDERS: ADMIT Internal Medicine Pulmonary Disease; ATTEND Internal Medicine Pulmonary Disease
PROC: 009U3ZX Drainage of Spinal Canal, Percutaneous Approach, Diagnostic (ICD-10-PCS; principal; 2017-07-01)
DX: G93.89 Other specified disorders of brain (principal); G35 Multiple sclerosis; D50.9 Iron deficiency anemia, unspecified; R27.8 Other lack of coordination; Z87.01 Personal history of pneumonia (recurrent)